=== PATIENT | female | born 1960 | race Caucasian/White ===

== ENCOUNTER 2016-12-20 13:14 | Emergency (ER) | payer BC | END 2016-12-20 15:39 | disposition home or self-care (01) | LOC: ER 13:14 | DX: M25.562 Pain in left knee (principal); F41.9 Anxiety disorder, unspecified; M79.7 Fibromyalgia; F17.210 Nicotine dependence, cigarettes, uncomplicated; Z79.899 Other long term (current) drug therapy | CPT/HCPCS: 73564; 99070; 99283 ==